=== PATIENT | female | born 1965 | race Caucasian/White ===

== ENCOUNTER → 2023-07-27 | Outpatient (CLI) | payer OTHER ==
--- NOTE | 2023-07-27 09:35 | XR ---
EXAMINATION TYPE: XR cervical spine comp DATE OF EXAM: 07/27/2023 COMPARISON: NONE HISTORY: Neck pain TECHNIQUE: Four views are submitted. FINDINGS: The odontoid is intact. There are no compression deformities. The prevertebral soft tissue structur es are within normal limits. Hypertrophic and degenerative change of the spine C5-C6 and C6-C7. Mild facet arthropathy. There is foraminal encroachment C5-C6 bilaterally. Loss of the normal cervical lo rdosis. Calcifications soft tissue the neck likely vascular IMPRESSION: 1. Degenerative disc disease C5-6 and C6-C7.
--- NOTE | 2023-07-27 10:00 | XR ---
EXAMINATION TYPE: XR shoulder complete BILAT DATE OF EXAM: 07/27/2023 COMPARISON: NONE HISTORY: Pain TECHNIQUE: Three views are submitted. FINDINGS: The osseous structures are intact. There is no acute fracture or dislocation. Bilateral moderate hyp ertrophic arthropathy of the AC joint. Glenohumeral joint arthropathy in the right mild arthropathy o n the left. Tiny granuloma right lobe. Sclerotic density overlying the left and appears to be outside osseous iona truction. Vague 9 mm nodule lobe possibly is bony structures.. IMPRESSION: 1. Moderate hypertrophic arthropathy bilateral AC joint correlate for rotator cuff disease. 2. Severe glenohumeral joint arthropathy on the right. 3. Mild left glenohumeral joint arthropathy. 4. Vague nodule left upper lobe possibly related to superimposed structures recommend CT chest..
== END | disposition home or self-care (01) ==
LOC: RADXRMAIN 08:52
PROVIDERS: ATTEND Family Medicine
DX: M50.322 Other cervical disc degeneration at C5-C6 level (principal); M19.012 Primary osteoarthritis, left shoulder; M19.011 Primary osteoarthritis, right shoulder; R91.1 Solitary pulmonary nodule
CPT/HCPCS: 72050

== ENCOUNTER → 2023-08-06 | Outpatient (CLI) | payer OTHER ==
--- NOTE | 2023-08-06 13:40 | MM ---
Reason for Exam: Screening (asymptomatic). Last mammogram was performed 2 year(s) and 1 month(s) ago. Patient History: Menarche at age 13. Patient has no children. Postmenopausal. 08/07/2001, Benign Excisional Biopsy on the right side. Mother had breast cancer, age 62. Risk Values: Prema 5 year model risk: 3.0%. NCI Lifetime model risk: 17.3%. Prior Study Comparison: 06/21/2020 Bilateral Screening Mammogram, Unknown. 06/24/2021 Bilateral Screening Mammogram, Unknown. Tissue Density: There are scattered areas of fibroglandular density. Findings: Analyzed By CAD. Right breast: There is no suspicious group of microcalcifications or new suspicious mass. Left breast: There is no suspicious group of microcalcifications or new suspicious mass. Overall Assessment: Negative, BI-RAD 1 Management: Screening Mammogram of both breasts in [address] [facility] will attempt to contact patient to return for supplemental views and ultrasound if indicated. Patient should continue monthly self-breast exams. A clinical breast exam by your physician is recommended on an annual basis. This exam should not preclude additional follow-up of suspicious palpable abnormalities. Note on Prema scores and lifetime risk: 1. A Prema score greater than 3% is considered moderate risk. If this is the case, consider specialist referral to assess eligibility for a risk reducing agent. 2. If overall lifetime risk for the development of breast cancer is 20% or higher, the patient may qualify for future screening with alternating mammogram and breast MRI. Electronically signed and approved by: Kenny Mina DO
== END | disposition home or self-care (01) ==
LOC: RADMAMWWP 10:46
PROVIDERS: ATTEND Family Medicine
DX: Z12.31 Encounter for screening mammogram for malignant neoplasm of breast (principal); Z80.3 Family history of malignant neoplasm of breast; Z78.0 Asymptomatic menopausal state
CPT/HCPCS: 77063; 77067

== ENCOUNTER → 2023-09-17 | Outpatient (CLI) | payer OTHER ==
--- NOTE | 2023-09-17 11:28 | XR ---
EXAMINATION TYPE: XR chest 2V DATE OF EXAM: 09/17/2023 10:02 AM CLINICAL INDICATION:Female, 58 years old with history of R91.1 SPN; PHH COMPARISON: None TECHNIQUE: XR chest 2V Frontal and lateral views of the chest. FINDINGS: Lungs/Pleura: Right upper lung nodule measuring 4 mm. There is no evidence of pleural effusion, focal consolidation, or pneumothorax. Pulmonary vascularity: Unremarkable. Heart/mediastinum: Cardiomediastinal silhouette is unremarkable. Musculoskeletal: No acute osseous pathology. IMPRESSION: 1. No acute cardiopulmonary disease/process. 2. Right upper lobe nodule possibly calcified granuloma. Correlate with CT imaging.
== END | disposition home or self-care (01) ==
LOC: RADXRMAIN 09:44
PROVIDERS: ATTEND Family Medicine
DX: R91.1 Solitary pulmonary nodule (principal)
CPT/HCPCS: 71046

== ENCOUNTER 2024-05-21 10:53 | Emergency (ER) | payer OTHER ==
--- NOTE | 2024-05-21 11:11 | ED ---
GI Bleed HPI - General Chief complaint: GI Bleed Stated complaint: bloody diarrhea Time Seen by Provider: 05/21/24 11:10 Source: patient, RN notes reviewed, old records reviewed Mode of arrival: ambulatory Limitations: no limitations - History of Present Illness Initial comments: This is a 59-year-old female to the ER today. She presents today for evaluation of abdominal pain, abdominal pain for 3 days with blood in the stool today. Bright red blood mixed with stool. Patient has prior history of colonoscopy 10 years ago with normal, abdominal pain increasing with cramping and not feeling comfortable for 3 days worse today. Pain started on Sunday with change in appetite MD complaint: blood on toilet paper, blood streaked stool -: days(s) (3) Radiation: none Quality: cramping Consistency: intermittent Improves with: none Worsens with: none Associated Symptoms: abdominal pain, nausea Treatments Prior to Arrival: none - Related Data Home Medications Medication Instructions Recorded Confirmed Albuterol Sulfate [Ventolin HFA] 2 puff INHALATION RT-BID PRN 05/21/24 05/21/24 Bifidobacterium Infantis [Align] 4 mg PO DAILY 05/21/24 05/21/24 Chlorthalidone 25 mg PO DAILY 05/21/24 05/21/24 Fish Oil 700mg 700 mg PO DAILY 05/21/24 05/21/24 Fluticasone Nasal [place] [Flonase 2 spr EA NOSTRIL DAILY 05/21/24 05/21/24 Nasal [place]] Gabapentin [Neurontin] 400 mg PO DAILY 05/21/24 05/21/24 Levothyroxine Sodium [Synthroid] 88 mcg PO DAILY 05/21/24 05/21/24 Metoprolol Succinate [Toprol XL] 100 mg PO DAILY 05/21/24 05/21/24 Multivit with Calcium,Iron,Min 1 tab PO DAILY 05/21/24 05/21/24 [Women's Multivitamin] OXcarbazepine [Trileptal] 150 mg PO BID 05/21/24 05/21/24 Omeprazole 40 mg PO DAILY 05/21/24 05/21/24 QUEtiapine [SEROquel] 100 mg PO HS 05/21/24 05/21/24 Tiotropium 2.5 Mcg/Puff [Spiriva 2 puff INHALATION RT-DAILY 05/21/24 05/21/24 Respimat 2.5 Mcg] Venlafaxine HCl [Effexor XR] 150 mg PO DAILY 05/21/24 05/21/24 Previous Rx's Medication Instructions Recorded Levofloxacin [Levaquin] 750 mg PO DAILY 7 Days #1 tab 05/21/24 Ondansetron Odt [Zofran ODT] 4 mg PO Q8HR PRN #30 tab 05/21/24 metroNIDAZOLE [Flagyl] 500 mg PO TID #30 tab 05/21/24 Allergies Allergy/AdvReac Type Severity Reaction Status Date / Time amoxicillin [From Augmentin] Allergy Rash/Hives Verified 05/21/24 12:18 clavulanic acid Allergy Rash/Hives Verified 05/21/24 12:18 [From Augmentin] Review of Systems ROS Statement: Those systems with pertinent positive or pertinent negative responses have been documented in the HPI. ROS Other: All systems not noted in ROS Statement are negative. Past Medical History Past Medical History: Hypertension, Thyroid Disorder Additional Past Medical History / Comment(s): tendinitis, right carpal tunnel, Barretts esophagus, Sjogrens, SVT, emphysema, right plantar fasciitis, hemorrhoids History of Any Multi-Drug Resistant Organisms: None Reported Past Surgical History: Orthopedic Surgery, Tubal Ligation Additional Past Surgical History / Comment(s): cervical leep, D&C, internal lateral sphincter irony, septoplasty and uvula vidal. Past Psychological History: Bipolar, Depression Smoking Status: Never smoker Past Alcohol Use History: Daily Past Drug Use History: None Reported General Exam Limitations: no limitations General appearance: alert, in no apparent distress Head exam: Present: atraumatic, normocephalic, normal inspection Eye exam: Present: normal appearance, PERRL, EOMI. Absent: scleral icterus, conjunctival injection, periorbital swelling ENT exam: Present: normal exam, mucous membranes moist Neck exam: Present: normal inspection. Absent: tenderness, meningismus, lymphadenopathy Respiratory exam: Present: normal lung sounds bilaterally. Absent: respiratory distress, wheezes, rales, rhonchi, stridor Cardiovascular Exam: Present: regular rate, normal rhythm, normal heart sounds. Absent: systolic murmur, diastolic murmur, rubs, gallop, clicks GI/Abdominal exam: Present: soft, normal bowel sounds. Absent: distended, tenderness, guarding, rebound, rigid Extremities exam: Present: normal inspection, full ROM, normal capillary refill. Absent: tenderness, pedal edema, joint swelling, calf tenderness Back exam: Present: normal inspection Neurological exam: Present: alert, oriented X3, CN II-XII intact Psychiatric exam: Present: normal affect, normal mood Skin exam: Present: warm, dry, intact, normal color. Absent: rash Course Vital Signs 05/21/24 05/21/24 05/21/24 10:54 11:55 14:04 Temperature 97.6 F 98.2 F Pulse Rate 69 69 67 Respiratory 18 16 18 Rate Blood Pressure 167/112 120/72 O2 Sat by Pulse 97 97 95 Oximetry - Reevaluation(s) Reevaluation #1: 05/21/24 12:42 Medical records reviewed Prior colonoscopy is reviewed No prior history of GI bleed Reevaluation #2: 05/21/24 12:42 Patient has not had bloody bowel movement here in the ER Reevaluation #3: Patient informed of results questions answered Reevaluation #4: Was pt. sent in by a medical professional or institution (, PA, BEAR KEEPER, urgent care, hospital, or usp...) When possible be specific @ -no Did you speak to anyone other than the patient for history (EMS, parent, family, police, friend...)? What history was obtained from this source @ -no Did you review nursing and triage notes (agree or disagree)? Why? @ -agree Are old charts reviewed (outside hosp., previous admission, EMS record, old EKG, old radiological studies, urgent care reports/EKG's, usp records)? Report findings @ -yes Differential Diagnosis (chest pain, altered mental status, abdominal pain women, abdominal pain men, vaginal bleeding, weakness, fever, dyspnea, syncope, headache, dizziness, GI bleed, back pain, seizure, CVA, palpatations, mental health, musculoskeletal)? @ -prior EKG interpreted by me (3pts min.). @ -yes X-rays interpreted by me (1pt min.). @ -no CT interpreted by me (1pt min.). @ -Positive for acute diverticulitis U/S interpreted by me (1pt. min.). @ -no What testing was considered but not performed or refused? (CT, X-rays, U/S, labs)? Why? @ -none What meds were considered but not given or refused? Why? @ -none Did you discuss the management of the patient with other professionals (professionals i.e. , PA, BEAR KEEPER, lab, RT, psych nurse, social media coordinator, service agent, teacher, air antisubmarine officer, case management director)? Give summary @ -no Was smoking cessation discussed for >3mins.? @ -no Was critical care preformed (if so, how long)? @ -no Were there social determinants of health that impacted care today? How? (Homelessness, low income, unemployed, alcoholism, drug addiction, transportation, low edu. Level, literacy, decrease access to med. care, fpc, rehab)? @ -none Was there de-escalation of care discussed even if they declined (Discuss DNR or withdrawal of care, Hospice)? DNR status @ -no What co-morbidities impacted this encounter? (DM, HTN, Smoking, COPD, CAD, Cancer, CVA, ARF, Chemo, Hep., AIDS, mental health diagnosis, sleep apnea, morbi d obesity)? @ -none Was patient admitted / discharged? Hospital course, mention meds given and rout e, prescriptions, significant lab abnormalities, going to OR and other pertinent info. @ - 59 female to ER for evaluation of abdominal pain with blood per rectum. Patient is positive for diverticulitis here in the ER, she feels much improved throughout ER stay and prefers discharge home to trial outpatient treatment Discharge acute diverticulitis and GI bleed Undiagnosed new problem with uncertain prognosis? @ -no Drug Therapy requiring intensive monitoring for toxicity (Heparin, Nitro, Insul in, Cardizem)? @ -no Were any procedures done? @ -no Diagnosis/symptom? @ - Acute, or Chronic, or Acute on Chronic? @ -Acute Uncomplicated (without systemic symptoms) or Complicated (systemic symptoms)? @ -Complicated Side effects of treatment? @ -no Exacerbation, Progression, or Severe Exacerbation? @ -exacerbation Poses a threat to life or bodily function? How? (Chest pain, [place], [place], pneumonia, PE, COPD, DKA, ARF, appy, cholecystitis, CVA, Diverticulitis, Homicidal, Suicidal, threat to staff... and all critical care pts) @ -yes with GI bleed Reevaluation #5: Differential GI Bleed: Esophageal varices, aortoenteric fistula, Rosangela-Meneses, gastritis, peptic ulcer disease, diverticulosis, inflammatory bowel disease, hemorrhoids, fissure, colitis, malignancy, Meckel's diverticulum, this is not meant to be an all- inclusive list. Medical Decision Making - Medical Decision Making 59 female to ER for evaluation of abdominal pain with blood per rectum. Patient is positive for diverticulitis here in the ER, she feels much improved throughout ER stay and prefers discharge home to trial outpatient treatment - Lab Data Result diagrams: 05/21/24 11:52 05/21/24 11:52 Lab Results 05/21/24 05/21/24 05/21/24 Range/Units 11:52 11:52 11:52 WBC 10.0 (3.8-10.6) k/uL RBC 4.93 (3.80-5.40) m/uL Hgb 14.7 (11.4-16.0) gm/dL Hct 44.9 (34.0-46.0) % MCV 91.0 (80.0-100.0) fL MCH 29.8 (25.0-35.0) pg MCHC 32.8 (31.0-37.0) g/dL RDW 12.9 (11.5-15.5) % Plt Count 230 (150-450) k/uL MPV 9.5 Neutrophils % 71 % Lymphocytes % 23 % Monocytes % 4 % Eosinophils % 1 % Basophils % 1 % Neutrophils # 7.1 (1.3-7.7) k/uL Lymphocytes # 2.3 (1.0-4.8) k/uL Monocytes # 0.4 (0-1.0) k/uL Eosinophils # 0.1 (0-0.7) k/uL Basophils # 0.1 (0-0.2) k/uL PT (10.0-12.5) sec INR (<1.2) APTT 21.8 L (22.0-30.0) sec Sodium 137 (137-145) mmol/L Potassium 3.3 L (3.5-5.1) mmol/L Chloride 94 L (98-107) mmol/L Carbon Dioxide 30 (22-30) mmol/L Anion Gap 13 mmol/L BUN 21 H (7-17) mg/dL Creatinine 0.90 (0.52-1.04) mg/dL Est GFR (CKD-EPI)AfAm 82 (>60 ml/min/1.73 sqM) Est GFR (CKD-EPI)NonAf 71 (>60 ml/min/1.73 sqM) Glucose 121 H (74-99) mg/dL Calcium 10.4 H (8.4-10.2) mg/dL Magnesium 1.9 (1.6-2.3) mg/dL Total Bilirubin 0.7 (0.2-1.3) mg/dL AST 27 (14-36) U/L ALT 24 (4-34) U/L Alkaline Phosphatase 108 (38-126) U/L Ammonia (<30) umol/L Troponin I (0.000-0.034) ng/mL Total Protein 8.7 H (6.3-8.2) g/dL Albumin 5.3 H (3.5-5.0) g/dL Lipase 112 (23-300) U/L Blood Type Blood Type Confirm Blood Type Recheck Bld Type Recheck Status Antibody Screen Spec Expiration Date 05/21/24 05/21/24 05/21/24 Range/Units 11:52 11:52 11:52 WBC (3.8-10.6) k/uL RBC (3.80-5.40) m/uL Hgb (11.4-16.0) gm/dL Hct (34.0-46.0) % MCV (80.0-100.0) fL MCH (25.0-35.0) pg MCHC (31.0-37.0) g/dL RDW (11.5-15.5) % Plt Count (150-450) k/uL MPV Neutrophils % % Lymphocytes % % Monocytes % % Eosinophils % % Basophils % % Neutrophils # (1.3-7.7) k/uL Lymphocytes # (1.0-4.8) k/uL Monocytes # (0-1.0) k/uL Eosinophils # (0-0.7) k/uL Basophils # (0-0.2) k/uL PT 10.6 (10.0-12.5) sec INR 0.9 (<1.2) APTT (22.0-30.0) sec Sodium (137-145) mmol/L Potassium (3.5-5.1) mmol/L Chloride (98-107) mmol/L Carbon Dioxide (22-30) mmol/L Anion Gap mmol/L BUN (7-17) mg/dL Creatinine (0.52-1.04) mg/dL Est GFR (CKD-EPI)AfAm (>60 ml/min/1.73 sqM) Est GFR (CKD-EPI)NonAf (>60 ml/min/1.73 sqM) Glucose (74-99) mg/dL Calcium (8.4-10.2) mg/dL Magnesium (1.6-2.3) mg/dL Total Bilirubin (0.2-1.3) mg/dL AST (14-36) U/L ALT (4-34) U/L Alkaline Phosphatase (38-126) U/L Ammonia <9 (<30) umol/L Troponin I <0.012 (0.000-0.034) ng/mL Total Protein (6.3-8.2) g/dL Albumin (3.5-5.0) g/dL Lipase (23-300) U/L Blood Type Blood Type Confirm Blood Type Recheck Bld Type Recheck Status Antibody Screen Spec Expiration Date 05/21/24 05/21/24 Range/Units 12:30 12:35 WBC (3.8-10.6) k/uL RBC (3.80-5.40) m/uL Hgb (11.4-16.0) gm/dL Hct (34.0-46.0) % MCV (80.0-100.0) fL MCH (25.0-35.0) pg MCHC (31.0-37.0) g/dL RDW (11.5-15.5) % Plt Count (150-450) k/uL MPV Neutrophils % % Lymphocytes % % Monocytes % % Eosinophils % % Basophils % % Neutrophils # (1.3-7.7) k/uL Lymphocytes # (1.0-4.8) k/uL Monocytes # (0-1.0) k/uL Eosinophils # (0-0.7) k/uL Basophils # (0-0.2) k/uL PT (10.0-12.5) sec INR (<1.2) APTT (22.0-30.0) sec Sodium (137-145) mmol/L Potassium (3.5-5.1) mmol/L Chloride (98-107) mmol/L Carbon Dioxide (22-30) mmol/L Anion Gap mmol/L BUN (7-17) mg/dL Creatinine (0.52-1.04) mg/dL Est GFR (CKD-EPI)AfAm (>60 ml/min/1.73 sqM) Est GFR (CKD-EPI)NonAf (>60 ml/min/1.73 sqM) Glucose (74-99) mg/dL Calcium (8.4-10.2) mg/dL Magnesium (1.6-2.3) mg/dL Total Bilirubin (0.2-1.3) mg/dL AST (14-36) U/L ALT (4-34) U/L Alkaline Phosphatase (38-126) U/L Ammonia (<30) umol/L Troponin I (0.000-0.034) ng/mL Total Protein (6.3-8.2) g/dL Albumin (3.5-5.0) g/dL Lipase (23-300) U/L Blood Type A Negative Blood Type Confirm A Negative Blood Type Recheck No Previous Record Bld Type Recheck Status CABO Indicated Antibody Screen NEGATIVE Spec Expiration Date 05/24/20242329 - Radiology Data Radiology results: report reviewed (CT of the abdomen pelvis is positive for acute diverticulitis), image reviewed Disposition Clinical Impression: Lower gastrointestinal hemorrhage, Diverticulitis Disposition: HOME SELF-CARE Condition: Good Instructions (If sedation given, give patient instructions): Gastrointestinal Bleeding (ED), Diverticulitis (ED), Rectal Bleeding (ED) Prescriptions: metroNIDAZOLE [Flagyl] 500 mg PO TID #30 tab Levofloxacin [Levaquin] 750 mg PO DAILY 7 Days #1 tab Ondansetron Odt [Zofran ODT] 4 mg PO Q8HR PRN #30 tab PRN Reason: nausea/vomiting Is patient prescribed a controlled substance at d/c from ED?: No Referrals: Sergio Pena MD [Primary Care Provider] - 1-2 days Maribel Shaver MD [STAFF PHYSICIAN] - 1-2 days Time of Disposition: 13:30
[2024-05-21 12:08] LABS: Basophils # (A) 0.1 k/uL (0-0.2); Basophils % (A) 1 %; Eosinophils # (A) 0.1 k/uL (0-0.7); Eosinophils % (A) 1 %; HCT 44.9 % (34.0-46.0); HGB 14.7 gm/dL (11.4-16.0); Lymphocytes # (A) 2.3 k/uL (1.0-4.8); Lymphocytes % (A) 23 %; MCH 29.8 pg (25.0-35.0); MCHC 32.8 g/dL (31.0-37.0); Mean Platelet Volume 9.5; Monocytes # (A) 0.4 k/uL (0-1.0); Monocytes % (A) 4 %; Neutrophils # (A) 7.1 k/uL (1.3-7.7); Neutrophils % (A) 71 %; Platelet Count 230 k/uL (150-450); RBC 4.93 m/uL (3.80-5.40); RDW 12.9 % (11.5-15.5)
[2024-05-21 12:18] LABS: ALT 24 U/L (4-34); AST 27 U/L (14-36); African American GFR (CKD) 82 (>60 ml/min/1.73 sqM); Albumin 5.3 g/dL (3.5-5.0); Alkaline Phosphatase 108 U/L (38-126); Anion Gap 13 mmol/L; Blood Urea Nitrogen 21 mg/dL (7-17); Calcium 10.4 mg/dL (8.4-10.2); Carbon Dioxide 30 mmol/L (22-30); Chloride 94 mmol/L (98-107); Glucose 121 mg/dL (74-99); Lipase 112 U/L (23-300); Magnesium 1.9 mg/dL (1.6-2.3); Non-African American GFR(CKD) 71 (>60 ml/min/1.73 sqM); Potassium 3.3 mmol/L (3.5-5.1); Sodium 137 mmol/L (137-145); Total Bilirubin 0.7 mg/dL (0.2-1.3); Total Protein 8.7 g/dL (6.3-8.2)
[2024-05-21] MEDS: PANTOPRAZOLE 40 MG/10 ML VIAL IVP STA (12:31)
[2024-05-21] MEDS: SODIUM CHLORIDE 0.9% 1,000 ML IV STA (12:32)
[2024-05-21] MEDS: ONDANSETRON 4 MG/2 ML VIAL IVP STA (12:34)
--- NOTE | 2024-05-21 13:10 | CT ---
EXAMINATION TYPE: CT abdomen pelvis w con DATE OF EXAM: 05/21/2024 COMPARISON: None CLINICAL INDICATION: Female, 59 years old with history of GIB; PHH, GIB TECHNIQUE: Performed without Oral Contrast and with IV Contrast, patient injected with 100 ml mL of Isovue 300. CT DLP: 1024.[address] CTDI: mGy Automated exposure control for dose reduction was used. FINDINGS: The lung bases are clear. There is a single tiny gallstone but no gallbladder wall thickening, distention or pericholecystic fl uid. There is no biliary ductal dilatation. There is no focal mass or organomegaly involving the liver, pancreas, spleen or adrenal glands. There is no solid renal mass or hydronephrosis and there is homogeneous contrast enhancement of the r enal parenchyma. The caliber the abdominal aorta is normal is no retroperitoneal adenopathy or hemorr kaden. There is mild inflammatory change in the fat surrounding the descending consistent with mild acute di verticulitis. There is a single diverticulum with increased density which could indicate acute blood in the diverticulum. There is no bowel obstruction. There is no intra-abdominal abscess, free fluid o r free air. There is no pelvic mass, abscess, free fluid or adenopathy. There are no focal osseous lesions. IMPRESSION: 1. Mild diverticulitis of the descending colon. 2. Possible small amount of acute hemorrhage within a single diverticulum in the descending colon. 3. No free intraperitoneal air, free fluid, abscess or bowel obstruction. 4. Tiny single gallstone. [facility], , 05/21/2024 1:08 PM
[2024-05-21] MEDS: LEVOFLOXACIN 750 MG TAB PO STA (13:55)
[2024-05-21] MEDS: ONDANSETRON 4 MG ODT STARTER PACK 2 TAB BTL PO STA (13:55)
[2024-05-21] MEDS: traMADol 50 MG STARTER PACK 3 TAB BTL PO STA (13:55)
[2024-05-21] MEDS: metroNIDAZOLE 500 MG TAB PO STA (13:55)
[2024-05-21 14:05] VITALS: BP 120/72; PULSE 67; RESP 18; TEMP 98.2
[2024-05-21 17:21] LABS: INR 0.9 (<1.2); Prothrombin Time 10.6 sec (10.0-12.5)
== END 2024-05-21 14:05 | disposition home or self-care (01) ==
LOC: EC 10:53
DX: K57.33 Diverticulitis of large intestine without perforation or abscess with bleeding (principal)
CPT/HCPCS: 36415; 86900; 86901; 80053; 82140; 83690; 83735; 84484; 85025; 85610; 85730; 86850; 74177; 99285; 96374; 96375; 96361; J2405; S0119; Q9967; J2470

== ENCOUNTER 2024-06-19 11:37 | Observation (INO) | payer OTHER ==
--- NOTE | 2024-06-19 12:40 | XR ---
EXAMINATION TYPE: XR chest 2V DATE OF EXAM: 06/19/2024 12:36 PM COMPARISON: Chest radiographs from TECHNIQUE: XR chest 2V Frontal and lateral views of the chest. CLINICAL INDICATION:Female, 59 years old with history of Chest Pain; FINDINGS: Lungs/Pleura: There is no evidence of pleural effusion, focal consolidation, or pneumothorax. Stable right upper lung granuloma. Pulmonary vascularity: Unremarkable. Heart/mediastinum: Cardiomediastinal silhouette is unremarkable. Musculoskeletal: No acute osseous pathology. IMPRESSION: No acute cardiopulmonary disease/process. [facility], , 06/19/2024 12:38 PM
[2024-06-19 12:43] LABS: Basophils % (A) 1 %; Eosinophils # (A) 0.1 k/uL (0-0.7); Eosinophils % (A) 2 %; HCT 39.3 % (34.0-46.0); Lymphocytes # (A) 2.1 k/uL (1.0-4.8); Lymphocytes % (A) 37 %; MCH 29.8 pg (25.0-35.0); MCHC 33.2 g/dL (31.0-37.0); MCV 89.8 fL (80.0-100.0); Mean Platelet Volume 8.8; Monocytes # (A) 0.3 k/uL (0-1.0); Monocytes % (A) 5 %; Neutrophils % (A) 53 %; Platelet Count 203 k/uL (150-450); RBC 4.38 m/uL (3.80-5.40); RDW 12.8 % (11.5-15.5); WBC 5.6 k/uL (3.8-10.6)
[2024-06-19 12:44] LABS: Appearance,Urine Clear (Clear); Bilirubin,Urine Negative (Negative); Blood,Urine Negative (Negative); Color,Urine Colorless; Glucose,Urine (UA) Negative (Negative); Ketones,Urine Negative (Negative); Leukocyte Esterase,Urine Negative (Negative); Nitrite,Urine Negative (Negative); Protein,Urine Negative (Negative); Specific Gravity,Urine 1.007 (1.001-1.035); Urobilinogen,Urine <2.0 mg/dL (<2.0)
[2024-06-19 12:51] LABS: INR 0.9 (<1.2); Partial Thromboplastin Time 22.2 sec (22.0-30.0); Prothrombin Time 10.4 sec (10.0-12.5)
[2024-06-19 13:15] LABS: African American GFR (CKD) 80 (>60 ml/min/1.73 sqM); Anion Gap 10 mmol/L; Blood Urea Nitrogen 19 mg/dL (7-17); Calcium 10.1 mg/dL (8.4-10.2); Carbon Dioxide 30 mmol/L (22-30); Chloride 97 mmol/L (98-107); Glucose 107 mg/dL (74-99); Non-African American GFR(CKD) 70 (>60 ml/min/1.73 sqM); Potassium 3.6 mmol/L (3.5-5.1); Sodium 137 mmol/L (137-145)
[2024-06-19 13:16] LABS: ALT 24 U/L (4-34); AST 28 U/L (14-36); Albumin 4.9 g/dL (3.5-5.0); Alkaline Phosphatase 109 U/L (38-126); Total Bilirubin 0.6 mg/dL (0.2-1.3); Total Protein 7.9 g/dL (6.3-8.2)
[2024-06-19] MEDS: MECLIZINE 12.5 MG TAB PO STA (13:53)
[2024-06-19] MEDS: SODIUM CHLORIDE 0.9% 1,000 ML IV ONE (13:54)
--- NOTE | 2024-06-19 14:18 | CT ---
EXAMINATION TYPE: CT brain wo con DATE OF EXAM: 06/19/2024 COMPARISON: None CLINICAL INDICATION: Female, 59 years old with history of ataxia; PHH, palpittions, dizziness, tingli ng in hands and feet, weakness, nausea x [address] DLP: 1133.4 mGycm Automated exposure control for dose reduction was used. Findings: The ventricles, basal cisterns and sulci over the convexities are within normal limits and there is n o mass effect or shift of midline structures. No abnormal density is seen throughout the brain parenchyma and there is no acute intra or extra-axia l hemorrhage. The posterior fossa including the brainstem, fourth ventricle and cerebellar pontine angles appear no rmal. Intraorbital contents appear normal and symmetric. Visualized paranasal sinuses and mastoid air cells are well aerated. The calvarium is intact. IMPRESSION: No significant abnormality seen. There is no acute bleed or mass effect. [facility], Workstation: [id number] 06/19/2024 2:15 PM
--- NOTE | 2024-06-19 15:28 | ED ---
General Adult HPI - General Chief complaint: Recheck/Abnormal Lab/Rx Stated complaint: Abn EKG Time Seen by Provider: 06/19/24 11:51 Source: patient Mode of arrival: ambulatory Limitations: no limitations - History of Present Illness Initial comments: 59-year-old female who presents emergency department from her primary care office. States that she has been fatigued since Sunday. She has had difficulty staying awake. Reports that she feels off balance and that she has to ambulate using rodriguez to keep herself upright. She denies vertiginous symptoms. Admits to nausea without vomiting. No headaches or visual changes. Denies chest pain. No fevers, cough. Does admit to some shortness of breath especially with exertion. No calf pain or swelling. No history of coronary disease. Does admit a history of SVT. She went into see her primary care today who did an EKG. Reported that she had diffuse T wave inversions. He had no old to compare to and therefore he recommended the patient be observed for further cardiac workup. - Related Data Home Medications Medication Instructions Recorded Confirmed Albuterol Sulfate [Ventolin HFA] 2 puff INHALATION RT-QID PRN 05/21/24 06/19/24 Bifidobacterium Infantis [Align] 4 mg PO DAILY 05/21/24 06/19/24 Chlorthalidone 25 mg PO DAILY 05/21/24 06/19/24 Fish Oil 700mg 700 mg PO DAILY 05/21/24 06/19/24 Fluticasone Nasal [place] [Flonase 2 spr EA NOSTRIL DAILY 05/21/24 06/19/24 Nasal [place]] Gabapentin [Neurontin] 400 mg PO HS 05/21/24 06/19/24 Levothyroxine Sodium [Synthroid] 88 mcg PO DAILY 05/21/24 06/19/24 Metoprolol Succinate [Toprol XL] 100 mg PO DAILY 05/21/24 06/19/24 Multivit with Calcium,Iron,Min 1 tab PO DAILY 05/21/24 06/19/24 [Women's Multivitamin] OXcarbazepine [Trileptal] 150 mg PO BID 05/21/24 06/19/24 Omeprazole 40 mg PO DAILY 05/21/24 06/19/24 QUEtiapine [SEROquel] 100 mg PO HS 05/21/24 06/19/24 Tiotropium 2.5 Mcg/Puff [Spiriva 2 puff INHALATION RT-DAILY 05/21/24 06/19/24 Respimat 2.5 Mcg] Venlafaxine HCl [Effexor XR] 150 mg PO DAILY 05/21/24 06/19/24 Allergies Allergy/AdvReac Type Severity Reaction Status Date / Time amoxicillin [From Augmentin] Allergy Rash/Hives Verified 06/19/24 11:48 clavulanic acid Allergy Rash/Hives Verified 06/19/24 11:48 [From Augmentin] Review of Systems ROS Statement: Those systems with pertinent positive or pertinent negative responses have been documented in the HPI. ROS Other: All systems not noted in ROS Statement are negative. Past Medical History Past Medical History: Hypertension, Thyroid Disorder Additional Past Medical History / Comment(s): tendinitis, right carpal tunnel, Barretts esophagus, Sjogrens, SVT, emphysema, right plantar fasciitis, hemorr hoids, diverticulitis, kidney stones History of Any Multi-Drug Resistant Organisms: None Reported Past Surgical History: Orthopedic Surgery, Tubal Ligation Additional Past Surgical History / Comment(s): cervical leep, D&C, internal lateral sphincter irony, septoplasty and uvula vidal. Past Psychological History: Bipolar, Depression Smoking Status: Never smoker Past Alcohol Use History: Daily Past Drug Use History: None Reported General Exam Limitations: no limitations General appearance: alert, in no apparent distress Head exam: Present: atraumatic, normocephalic, normal inspection Eye exam: Present: normal appearance, PERRL, EOMI. Absent: scleral icterus, conjunctival injection, periorbital swelling ENT exam: Present: normal exam, mucous membranes moist Neck exam: Present: normal inspection. Absent: tenderness, meningismus, lymphadenopathy Respiratory exam: Present: normal lung sounds bilaterally. Absent: respiratory distress, wheezes, rales, rhonchi, stridor Cardiovascular Exam: Present: regular rate, normal rhythm, normal heart sounds. Absent: systolic murmur, diastolic murmur, rubs, gallop, clicks GI/Abdominal exam: Present: soft, normal bowel sounds. Absent: distended, tenderness, guarding, rebound, rigid Extremities exam: Present: normal inspection, full ROM, normal capillary refill. Absent: tenderness, pedal edema, joint swelling, calf tenderness Back exam: Present: normal inspection Neurological exam: Present: alert, oriented X3, CN II-XII intact Psychiatric exam: Present: normal affect, normal mood Skin exam: Present: warm, dry, intact, normal color. Absent: rash Course Vital Signs 06/19/24 06/19/24 06/19/24 11:41 12:57 13:43 Temperature 98.0 F Pulse Rate 63 59 L Pulse Rate [ 57 L Executive Admin ] Respiratory 17 18 18 Rate Blood Pressure 149/93 103/70 Blood Pressure [Left Arm Sitting] Blood Pressure [Left Arm Standing] Blood Pressure 119/75 [Left Arm Supine] O2 Sat by Pulse 95 95 95 Oximetry 06/19/24 06/19/24 06/19/24 13:45 13:46 14:30 Temperature Pulse Rate 64 Pulse Rate [ 57 L 84 Executive Admin ] Respiratory 16 18 16 Rate Blood Pressure 129/79 Blood Pressure 125/85 [Left Arm Sitting] Blood Pressure 136/105 [Left Arm Standing] Blood Pressure [Left Arm Supine] O2 Sat by Pulse 98 98 100 Oximetry Medical Decision Making - Medical Decision Making Was pt. sent in by a medical professional or institution (, PA, GROUP INSURANCE SPECIALIST, urgent care, hospital, or alf...) When possible be specific @ -[No] Did you speak to anyone other than the patient for history (EMS, parent, family, police, friend...)? What history was obtained from this source @ -[No] Did you review nursing and triage notes (agree or disagree)? Why? @ -[I reviewed and agree with nursing and triage notes] Were old charts reviewed (outside hosp., previous admission, EMS record, old EKG, old radiological studies, urgent care reports/EKG's, alf records)? Report findings @ -[No old charts were reviewed] Differential Diagnosis (chest pain, altered mental status, abdominal pain women, abdominal pain men, vaginal bleeding, weakness, fever, dyspnea, syncope, headache, dizziness, GI bleed, back pain, seizure, CVA, palpatations, mental health, musculoskeletal)? @ -[not applicable] EKG interpreted by me (3pts min.). @ -First EKG done at 1158 demonstrates sinus rhythm with rate of 60. CA interval 177. QRS 110. QTc of 414. No acute ST segment elevations. Inverted T wave V2 through V6 Second EKG completed at 1439 demonstrates sinus rhythm with rate of 67. Parable 148. QRS 121. QTc of 438. No acute ST segment elevations. Inverted T waves 2, 3, aVF as well as V2 through V6 X-rays interpreted by me (1pt min.). @ -[None done] CT interpreted by me (1pt min.). @ -[None done] U/S interpreted by me (1pt. min.). @ -[None done] What testing was considered but not performed or refused? (CT, X-rays, U/S, labs)? Why? @ -[None] What meds were considered but not given or refused? Why? @ -[None] Did you discuss the management of the patient with other professionals (professionals i.e. , PA, GROUP INSURANCE SPECIALIST, lab, RT, psych nurse, social group worker, tombstone erector, teacher, armed custom protection officer, caseworker intake)? Give summary @ -[No] Was smoking cessation discussed for >3mins.? @ -[No] Was critical care preformed (if so, how long)? @ -[No] Were there social determinants of health that impacted care today? How? (Homelessness, low income, unemployed, alcoholism, drug addiction, transportation, low edu. Level, literacy, decrease access to med. care, care home, rehab)? @ -[No] Was there de-escalation of care discussed even if they declined (Discuss DNR or withdrawal of care, Hospice)? DNR status @ -[No] What co-morbidities impacted this encounter? (DM, HTN, Smoking, COPD, CAD, Cancer, CVA, ARF, Chemo, Hep., AIDS, mental health diagnosis, sleep apnea, morbid obesity)? @ -[None] Was patient admitted / discharged? Hospital course, mention meds given and route, prescriptions, significant lab abnormalities, going to OR and other pertinent info. @ -[hospital course] Undiagnosed new problem with uncertain prognosis? @ -[No] Drug Therapy requiring intensive monitoring for toxicity (Heparin, Nitro, Insulin, Cardizem)? @ -[No] Were any procedures done? @ -[No] Diagnosis/symptom? @ -[default] Acute, or Chronic, or Acute on Chronic? @ -[default] Uncomplicated (without systemic symptoms) or Complicated (systemic symptoms)? @ -[default] Side effects of treatment? @ -[No] Exacerbation, Progression, or Severe Exacerbation? @ -[No] Poses a threat to life or bodily function? How? (Chest pain, USA, ID, pneumonia, PE, COPD, DKA, ARF, appy, cholecystitis, CVA, Diverticulitis, Homicidal, Suicidal, threat to staff... and all critical care pts) @ -[No] - Lab Data Result diagrams: 06/19/24 12:23 06/19/24 12:23 Lab Results 06/19/24 06/19/24 06/19/24 Range/Units 12:23 12:23 12:23 WBC 5.6 (3.8-10.6) k/uL RBC 4.38 (3.80-5.40) m/uL Hgb 13.0 (11.4-16.0) gm/dL Hct 39.3 (34.0-46.0) % MCV 89.8 (80.0-100.0) fL MCH 29.8 (25.0-35.0) pg MCHC 33.2 (31.0-37.0) g/dL RDW 12.8 (11.5-15.5) % Plt Count 203 (150-450) k/uL MPV 8.8 Neutrophils % 53 % Lymphocytes % 37 % Monocytes % 5 % Eosinophils % 2 % Basophils % 1 % Neutrophils # 3.0 (1.3-7.7) k/uL Lymphocytes # 2.1 (1.0-4.8) k/uL Monocytes # 0.3 (0-1.0) k/uL Eosinophils # 0.1 (0-0.7) k/uL Basophils # 0.0 (0-0.2) k/uL PT 10.4 (10.0-12.5) sec INR 0.9 (<1.2) APTT 22.2 (22.0-30.0) sec D-Dimer (<0.60) mg/L FEU Sodium 137 (137-145) mmol/L Potassium 3.6 (3.5-5.1) mmol/L Chloride 97 L (98-107) mmol/L Carbon Dioxide 30 (22-30) mmol/L Anion Gap 10 mmol/L BUN 19 H (7-17) mg/dL Creatinine 0.91 (0.52-1.04) mg/dL Est GFR (CKD-EPI)AfAm 80 (>60 ml/min/1.73 sqM) Est GFR (CKD-EPI)NonAf 70 (>60 ml/min/1.73 sqM) Glucose 107 H (74-99) mg/dL Calcium 10.1 (8.4-10.2) mg/dL Magnesium 2.0 (1.6-2.3) mg/dL Total Bilirubin 0.6 (0.2-1.3) mg/dL AST 28 (14-36) U/L ALT 24 (4-34) U/L Alkaline Phosphatase 109 (38-126) U/L Troponin I (0.000-0.034) ng/mL Total Protein 7.9 (6.3-8.2) g/dL Albumin 4.9 (3.5-5.0) g/dL Urine Color Urine Appearance (Clear) Urine pH (5.0-8.0) Ur Specific [place] (1.001-1.035) Urine Protein (Negative) Urine Glucose (UA) (Negative) Urine Ketones (Negative) Urine Blood (Negative) Urine Nitrite (Negative) Urine Bilirubin (Negative) Urine Urobilinogen (<2.0) mg/dL Ur Leukocyte Esterase (Negative) 06/19/24 06/19/24 06/19/24 Range/Units 12:23 12:23 12:24 WBC (3.8-10.6) k/uL RBC (3.80-5.40) m/uL Hgb (11.4-16.0) gm/dL Hct (34.0-46.0) % MCV (80.0-100.0) fL MCH (25.0-35.0) pg MCHC (31.0-37.0) g/dL RDW (11.5-15.5) % Plt Count (150-450) k/uL MPV Neutrophils % % Lymphocytes % % Monocytes % % Eosinophils % % Basophils % % Neutrophils # (1.3-7.7) k/uL Lymphocytes # (1.0-4.8) k/uL Monocytes # (0-1.0) k/uL Eosinophils # (0-0.7) k/uL Basophils # (0-0.2) k/uL PT (10.0-12.5) sec INR (<1.2) APTT (22.0-30.0) sec D-Dimer 0.22 (<0.60) mg/L FEU Sodium (137-145) mmol/L Potassium (3.5-5.1) mmol/L Chloride (98-107) mmol/L Carbon Dioxide (22-30) mmol/L Anion Gap mmol/L BUN (7-17) mg/dL Creatinine (0.52-1.04) mg/dL Est GFR (CKD-EPI)AfAm (>60 ml/min/1.73 sqM) Est GFR (CKD-EPI)NonAf (>60 ml/min/1.73 sqM) Glucose (74-99) mg/dL Calcium (8.4-10.2) mg/dL Magnesium (1.6-2.3) mg/dL Total Bilirubin (0.2-1.3) mg/dL AST (14-36) U/L ALT (4-34) U/L Alkaline Phosphatase (38-126) U/L Troponin I <0.012 (0.000-0.034) ng/mL Total Protein (6.3-8.2) g/dL Albumin (3.5-5.0) g/dL Urine Color Colorless Urine Appearance Clear (Clear) Urine pH 7.0 (5.0-8.0) Ur Specific [place] 1.007 (1.001-1.035) Urine Protein Negative (Negative) Urine Glucose (UA) Negative (Negative) Urine Ketones Negative (Negative) Urine Blood Negative (Negative) Urine Nitrite Negative (Negative) Urine Bilirubin Negative (Negative) Urine Urobilinogen <2.0 (<2.0) mg/dL Ur Leukocyte Esterase Negative (Negative) Disposition Clinical Impression: Ataxia, Abnormal EKG Disposition: ADMITTED IP TO THIS [facility] Condition: Stable Is patient prescribed a controlled substance at d/c from ED?: No Referrals: Sergio Pena MD [Primary Care Provider] - 1-2 days Time of Disposition: 15:30 Decision to Admit Reason: Admit from EC Decision Date: 06/19/24 Decision Time: 15:31
[2024-06-19] MEDS ORDERED: NALOXONE 0.4 MG/ML 1 ML VIAL IV PRN (15:31)
[2024-06-19] MEDS ORDERED: ACETAMINOPHEN TAB 325 MG TAB PO PRN (15:31)
[2024-06-19] MEDS: SODIUM CHLORIDE 0.9% 1,000 ML IV SCH (16:16)
[2024-06-20 04:10] LABS: Influenza A Not Detected (Not Detectd); Influenza B Not Detected (Not Detectd); RSV Not Detected (Not Detectd)
[2024-06-20 08:18] LABS: HCT 39.4 % (37.2-46.3); HGB 13.3 g/dL (12.0-15.0); MCH 30.7 pg (27.0-32.0); MCHC 33.8 g/dL (32.0-37.0); Mean Platelet Volume 11.5 FL (9.5-12.2); NRBC Per 100 WBC 0 X 10*3/uL (0.00-0.01); Platelet Count 218 X 10*3/uL (140-440); RBC 4.33 X 10*6/uL (4.10-5.20); RDW 12.6 % (11.5-14.5)
[2024-06-20 08:19] LABS: Basophils # (A) 0.04 X 10*3/uL (0.00-0.10); Basophils % (A) 0.7 %; Eosinophils # (A) 0.07 X 10*3/uL (0.04-0.35); Eosinophils % (A) 1.3 %; Lymphocytes # (A) 1.67 X 10*3/uL (0.90-5.00); Lymphocytes % (A) 30.9 %; Monocytes # (A) 0.41 X 10*3/uL (0.20-1.00); Monocytes % (A) 7.6 %; Neutrophils # (A) 3.17 X 10*3/uL (1.80-7.70); Neutrophils % (A) 58.8 %
[2024-06-20 08:35] LABS: BUN/Creat Ratio 18.78 Ratio (12.00-20.00); Blood Urea Nitrogen 16.9 mg/dL (9.0-27.0); Calcium 9.5 mg/dL (8.7-10.3); Chloride 103 mmol/L (96-109); Glucose 119 mg/dL (70-110); Potassium 3.6 mmol/L (3.5-5.5); Sodium 143 mmol/L (135-145)
[2024-06-20] MEDS ORDERED: ALPRAZolam 0.25 MG TAB PO PRN (08:56)
[2024-06-20] MEDS ORDERED: NITROGLYCERIN SL TABS 0.4 MG TAB SUBLINGUAL PRN (08:56)
[2024-06-20] MEDS ORDERED: ALPRAZolam 0.5 MG TAB PO PRN (08:56)
[2024-06-20] MEDS: ASPIRIN 81 MG PO SCH (09:08)
[2024-06-20] MEDS: ASPIRIN 325 MG TAB PO STA (09:10)
[2024-06-20] MEDS: ATORVASTATIN 80 MG TAB PO STA (09:10)
[2024-06-20] MEDS: CHLORTHALIDONE 25 MG TAB PO SCH (09:11)
[2024-06-20] MEDS: METOPROLOL SUCCINATE (ER) 100 MG TAB.ER.24H PO SCH (09:11)
[2024-06-20] MEDS: SODIUM CHLORIDE 0.9% 1,000 ML in EMPTY BAG 1 BAG IV SCH (09:17)
[2024-06-20] MEDS: SODIUM CHLORIDE 0.9% 1,000 ML IV ONE (09:54)
[2024-06-20] MEDS: HEPARIN SODIUM,PORCINE 10,000 UNIT in SODIUM CHLORIDE 0.9% 1,000 ML IRRIGATION PRN (09:54)
[2024-06-20] MEDS: HEPARIN SODIUM,PORCINE (1 ML) 2,500 UNIT in SODIUM CHLORIDE 0.9% 250 ML IRRIGATION PRN (09:54)
--- NOTE | 2024-06-20 10:10 | P.CRDCN ---
History of Present Illness History of present illness: HISTORY OF PRESENT ILLNESS: This is a 59-year-old female with a past medical history significant for SVT and hypothyroidism. Patient follows with a security officers and guards out of town. We have been asked to see the patient in consultation for chest pain. Patient examined at the bedside. Patient was at her primary care physician yesterday as she states she has been having symptoms of feeling unwell since Sunday. She reports that she has been feeling lethargic, dizzy, weak, and nauseated. She had an EKG completed at that visit which her primary care thought was concerning and directed that she come to the emergency room for further evaluation. At the time of examination, the patient denies any chest pain or pressure. She denies any shortness of breath. She recently had a stress test performed in [facility] that revealed a small defect in the anterior portion of the heart which was read by the radiologist as either ischemia or soft tissue attenuation. The patient also reports a history of SVT approximately 2 years ago that was diagnosed when she was living in [place]. She denies having any palpitations. DIAGNOSTICS: - EKG reveals sinus mechanism with diffuse T wave inversions. - Chest xray negative for acute process. - Laboratory data: WBC 5.4. Hemoglobin 13.3. Platelet count 218. D-dimer 0.22. Sodium 143. Sodium 3.6. BUN 16.9. Creatinine 0.9. Troponin negative x 3. - Current home cardiac medications include metoprolol succinate 100 mg daily and chlorthalidone 25 mg daily. - No previous echocardiogram, stress test, or cardiac catheterization available in EMR for review REVIEW OF SYSTEMS: At the time of my exam: CONSTITUTIONAL: Denies fever or chills. HEENT: Denies blurred vision, vision changes, or eye pain. Denies hemoptysis CARDIOVASCULAR: Denies chest pain. Denies orthopnea. Denies PND. Denies palpitations RESPIRATORY: Denies shortness of breath. GASTROINTESTINAL: Denies abdominal pain. Denies nausea or vomiting. HEMATOLOGIC: Denies bleeding disorders. GENITOURINARY: Denies any blood in urine. SKIN: Denies pruitis. Denies rash. PHYSICAL EXAM: VITAL SIGNS: Reviewed. GENERAL: Well-developed in no acute distress. HEENT: Head is normocephalic. Pupils are equal, round. Sclerae anicteric. Mucous membranes of the mouth are moist. Neck supple. No JVD or thyromegaly LUNGS: Respirations even and unlabored. Lungs essentially clear to auscultation bilaterally. HEART: Regular rate and rhythm. S1 and S2 heard. ABDOMEN: Soft. Nondistended. Nontender. EXTREMITIES: Normal range of motion. No clubbing or cyanosis. Peripheral puls es intact. No lower extremity edema NEUROLOGIC: Awake and alert. Oriented x 3. ASSESSMENT: Chest pain with recent questionable abnormal nuclear stress test History of SVT Hypothyroidism Obesity: BMI 33.3 PLAN: Obtain 2D echo to assess cardiac structure and function Resume home cardiac medications Add aspirin 81 mg daily Discussed different modality of stress testing versus cardiac catheterization. Patient states that she would like to undergo cardiac catheterization. Patient to undergo cardiac catheterization today with Dr. Shaver Further recommendations pending patient course Nurse practitioner note has been reviewed by physician. Signing provider agrees with the documented findings, assessment, and plan of care documented by CORPORATE SECURITY MANAGER as a scribe. Past Medical History Past Medical History: Hypertension, Supraventricular Tachycardia (SVT), Thyroid Disorder Additional Past Medical History / Comment(s): tendinitis, right carpal tunnel, Barretts esophagus, Sjogrens, SVT, emphysema, right plantar fasciitis, hemorrhoids, diverticulitis, kidney stones History of Any Multi-Drug Resistant Organisms: None Reported Past Surgical History: Orthopedic Surgery, Tubal Ligation Additional Past Surgical History / Comment(s): cervical leep, D&C, internal lateral sphincter irony, septoplasty and uvula vidal. Past Psychological History: Bipolar, Depression Smoking Status: Never smoker Past Alcohol Use History: Daily Past Drug Use History: None Reported - Past Family History Mother Family Medical History: Coronary Artery Disease (CAD), Diabetes Mellitus, Hypertension Additional Family Medical History / Comment(s): pacemaker, breast ca Medications and Allergies Home Medications Medication Instructions Recorded Confirmed Type Albuterol Sulfate [Ventolin HFA] 2 puff INHALATION RT-QID PRN 05/21/24 06/19/24 History Bifidobacterium Infantis [Align] 4 mg PO DAILY 05/21/24 06/19/24 History Chlorthalidone 25 mg PO DAILY 05/21/24 06/19/24 History Fish Oil 700mg 700 mg PO DAILY 05/21/24 06/19/24 History Fluticasone Nasal [place] [Flonase 2 spr EA NOSTRIL DAILY 05/21/24 06/19/24 History Nasal [place]] Gabapentin [Neurontin] 400 mg PO HS 05/21/24 06/19/24 History Levothyroxine Sodium [Synthroid] 88 mcg PO DAILY 05/21/24 06/19/24 History Metoprolol Succinate [Toprol XL] 100 mg PO DAILY 05/21/24 06/19/24 History Multivit with Calcium,Iron,Min 1 tab PO DAILY 05/21/24 06/19/24 History [Women's Multivitamin] OXcarbazepine [Trileptal] 150 mg PO BID 05/21/24 06/19/24 History Omeprazole 40 mg PO DAILY 05/21/24 06/19/24 History QUEtiapine [SEROquel] 100 mg PO HS 05/21/24 06/19/24 History Tiotropium 2.5 Mcg/Puff [Spiriva 2 puff INHALATION RT-DAILY 05/21/24 06/19/24 History Respimat 2.5 Mcg] Venlafaxine HCl [Effexor XR] 150 mg PO DAILY 05/21/24 06/19/24 History Allergies Allergy/AdvReac Type Severity Reaction Status Date / Time amoxicillin [From Augmentin] Allergy Rash/Hives Verified 06/19/24 11:48 clavulanic acid Allergy Rash/Hives Verified 06/19/24 11:48 [From Augmentin] Physical Exam Vitals: Vital Signs Temp Pulse Pulse Resp BP BP BP 06/20/24 01:16 97.4 F L 57 L 18 06/19/24 20:00 66 16 06/19/24 19:14 97.6 F 66 16 06/19/24 17:42 98.3 F 66 16 06/19/24 17:21 97.7 F 66 18 109/69 06/19/24 15:52 71 18 127/91 06/19/24 14:30 64 16 129/79 06/19/24 13:46 84 18 136/105 06/19/24 13:45 57 L 16 125/85 06/19/24 13:43 57 L 18 06/19/24 12:57 59 L 18 103/70 06/19/24 11:41 98.0 F 63 17 149/93 BP Pulse Ox 06/20/24 01:16 121/81 95 06/19/24 20:00 06/19/24 19:14 119/77 95 06/19/24 17:42 127/83 95 06/19/24 17:21 95 06/19/24 15:52 100 06/19/24 14:30 100 06/19/24 13:46 98 06/19/24 13:45 98 06/19/24 13:43 119/75 95 06/19/24 12:57 95 06/19/24 11:41 95 Intake and Output 06/19/24 06/20/24 06/20/24 22:59 06:59 14:59 Other: # Voids 1 1 Weight 79.832 kg Results 06/20/24 05:38 06/20/24 05:38 Cardiac Enzymes 06/19/24 06/19/24 06/19/24 Range/Units 12:23 12:23 17:02 AST 28 (14-36) U/L Troponin I <0.012 <0.012 (0.000-0.034) ng/mL 06/19/24 Range/Units 20:07 AST (14-36) U/L Troponin I <0.012 (0.000-0.034) ng/mL Coagulation 06/19/24 Range/Units 12:23 PT 10.4 (10.0-12.5) sec APTT 22.2 (22.0-30.0) sec CBC 06/19/24 Range/Units 12:23 WBC 5.6 (3.8-10.6) k/uL RBC 4.38 (3.80-5.40) m/uL Hgb 13.0 (11.4-16.0) gm/dL Hct 39.3 (34.0-46.0) % Plt Count 203 (150-450) k/uL Comprehensive Metabolic Panel 06/19/24 Range/Units 12:23 Sodium 137 (137-145) mmol/L Potassium 3.6 (3.5-5.1) mmol/L Chloride 97 L (98-107) mmol/L Carbon Dioxide 30 (22-30) mmol/L BUN 19 H (7-17) mg/dL Creatinine 0.91 (0.52-1.04) mg/dL Glucose 107 H (74-99) mg/dL Calcium 10.1 (8.4-10.2) mg/dL AST 28 (14-36) U/L ALT 24 (4-34) U/L Alkaline Phosphatase 109 (38-126) U/L Total Protein 7.9 (6.3-8.2) g/dL Albumin 4.9 (3.5-5.0) g/dL Current Medications Generic Name Dose Route Start Last Admin Trade Name Freq PRN Reason Stop Dose Admin Acetaminophen 650 mg 06/19/24 15:31 Acetaminophen Tab 325 Mg Tab PO Q6HR PRN Mild Pain or Fever > 100.5 Sodium Chloride 1,000 mls @ 75 mls/hr 06/19/24 15:45 06/19/24 16:16 Saline 0.9% IV 75 mls/hr .[id number] ENRIQUE Administration Naloxone HCl 0.2 mg 06/19/24 15:31 Naloxone 0.4 Mg/Ml 1 Ml Vial IV Q2M PRN Opioid Reversal Intake and Output 06/19/24 06/20/24 06/20/24 22:59 06:59 14:59 Other: # Voids 1 1 Weight 79.832 kg 06/19/24 12:23 06/19/24 12:23
[2024-06-20] MEDS: MIDAZOLAM 2 MG/2 ML VIAL IVP ONE (10:42)
[2024-06-20] MEDS: fentaNYL (PF) 50 MCG/1 ML VIAL IVP ONE (10:42)
[2024-06-20] MEDS: LIDOCAINE 1% INJ 10MG/ML (20 ML MDV) SQ ONE (10:43)
[2024-06-20] MEDS: VERAPAMIL SYRINGE (5 MG/10 ML) INTRAARTER ONE (10:45)
[2024-06-20] MEDS: HEPARIN SODIUM 1,000 UN/ML (10ML VL) IV ONE (10:47)
[2024-06-20] MEDS: IOPAMIDOL-370 100ML BTL INJ ONE (11:02)
--- NOTE | 2024-06-20 12:29 | P.CNNES ---
History of Present Illness Consult date: 06/20/24 Requesting physician: Tiffany Hernandez Reason for Consult: ataxia History of Present Illness: This is a 59-year-old woman with history of SVT, thyroid issue who presents emergency department because of generalized weakness, fatigue, nausea off balance since this past Sunday. Patient just feels generalized weakness and the re is no focal weakness as well as fatigue/tired. She does not have any visual disturbance, any speech difficulty. Denies any recent fevers. She feels she has tingling in the fingers and the feet. Denies any recent sick contacts. Denies any difficulty swallowing. Denies any recent travel. Denies any history of stroke. Denies passing out episode. She feels today she is better. She stated she drinks 2 large drinks of alcohol daily and her last drink was this past not since Sunday Some of the workup during this hospital consisted of: CBC with differential is unremarkable Chemistry panel is unremarkable Hemoglobin A1c 6.2 Vitamin B12 is 490 TSH is 1.80 Serum folate is 32.90 Otherwise sodium, calcium magnesium is within normal limit CT head: No significant abnormality seen. There is no acute bleed or mass effect. I personally reviewed the CT and agree with the report. EKG is reported as moderate intraventricular conduction delay. Moderate T wave abnormality consider anterior lateral ischemia. Consider inferior ischemia. Review of Systems As per HPI. Past Medical History Past Medical History: Hypertension, Supraventricular Tachycardia (SVT), Thyroid Disorder Additional Past Medical History / Comment(s): tendinitis, right carpal tunnel, Barretts esophagus, Sjogrens, SVT, emphysema, right plantar fasciitis, hemorrhoids, diverticulitis, kidney stones History of Any Multi-Drug Resistant Organisms: None Reported Past Surgical History: Orthopedic Surgery, Tubal Ligation Additional Past Surgical History / Comment(s): cervical leep, D&C, internal lateral sphincter irony, septoplasty and uvula vidal. Past Psychological History: Bipolar, Depression Smoking Status: Never smoker Past Alcohol Use History: Daily Past Drug Use History: None Reported - Past Family History Mother Family Medical History: Coronary Artery Disease (CAD), Diabetes Mellitus, Hypertension Additional Family Medical History / Comment(s): pacemaker, breast ca Medications and Allergies Home Medications Medication Instructions Recorded Confirmed Type Albuterol Sulfate [Ventolin HFA] 2 puff INHALATION RT-QID PRN 05/21/24 06/19/24 History Bifidobacterium Infantis [Align] 4 mg PO DAILY 05/21/24 06/19/24 History Chlorthalidone 25 mg PO DAILY 05/21/24 06/19/24 History Fish Oil 700mg 700 mg PO DAILY 05/21/24 06/19/24 History Fluticasone Nasal [place] [Flonase 2 spr EA NOSTRIL DAILY 05/21/24 06/19/24 History Nasal [place]] Gabapentin [Neurontin] 400 mg PO HS 05/21/24 06/19/24 History Levothyroxine Sodium [Synthroid] 88 mcg PO DAILY 05/21/24 06/19/24 History Metoprolol Succinate [Toprol XL] 100 mg PO DAILY 05/21/24 06/19/24 History Multivit with Calcium,Iron,Min 1 tab PO DAILY 05/21/24 06/19/24 History [Women's Multivitamin] OXcarbazepine [Trileptal] 150 mg PO BID 05/21/24 06/19/24 History Omeprazole 40 mg PO DAILY 05/21/24 06/19/24 History QUEtiapine [SEROquel] 100 mg PO HS 05/21/24 06/19/24 History Tiotropium 2.5 Mcg/Puff [Spiriva 2 puff INHALATION RT-DAILY 05/21/24 06/19/24 History Respimat 2.5 Mcg] Venlafaxine HCl [Effexor XR] 150 mg PO DAILY 05/21/24 06/19/24 History Allergies Allergy/AdvReac Type Severity Reaction Status Date / Time amoxicillin [From Augmentin] Allergy Rash/Hives Verified 06/19/24 11:48 clavulanic acid Allergy Rash/Hives Verified 06/19/24 11:48 [From Augmentin] Physical Examination - Vital Signs Vital Signs: Vital Signs Temp Pulse Pulse Resp BP BP BP 06/20/24 07:00 97.7 F 75 16 06/20/24 01:16 97.4 F L 57 L 18 06/19/24 20:00 66 16 06/19/24 19:14 97.6 F 66 16 06/19/24 17:42 98.3 F 66 16 06/19/24 17:21 97.7 F 66 18 109/69 06/19/24 15:52 71 18 127/91 06/19/24 14:30 64 16 129/79 06/19/24 13:46 84 18 136/105 06/19/24 13:45 57 L 16 125/85 06/19/24 13:43 57 L 18 06/19/24 12:57 59 L 18 103/70 BP Pulse Ox 06/20/24 07:00 149/94 99 06/20/24 01:16 121/81 95 06/19/24 20:00 06/19/24 19:14 119/77 95 06/19/24 17:42 127/83 95 06/19/24 17:21 95 06/19/24 15:52 100 06/19/24 14:30 100 06/19/24 13:46 98 06/19/24 13:45 98 06/19/24 13:43 119/75 95 06/19/24 12:57 95 Intake and Output 06/19/24 06/20/24 06/20/24 22:59 06:59 14:59 Intake Total 130 Balance 130 Intake: IV 130 Other: # Voids 1 1 Weight 79.832 kg GENERAL: The patient is lying in bed and is not in acute distress. NEUROLOGICAL: Higher mental function: The patient is awake, alert, oriented to self, place and time. Patient is following commands. No aphasia and no neglect. Cranial nerves: The pupils are round, equal and reactive to light and accommodation. Visual kaufman are full to confrontation throughout. Extraocular movement is intact no nystagmus is noted. Facial sensation is normal to touch throughout. The facial strength is normal throughout. Hearing is normal bilaterally to hand rub. Tongue is midline and moved [id number] without any difficulty. No dysarthria is noted. Shoulder shrug is normal bilaterally. Motor: The strength is 5 over 5 throughout. Normal tone and bulk. Cerebellum: Normal finger to nose heel to nunez bilaterally. Sensation: Sensation is normal to touch throughout. Reflexes (right/left): 2+ throughout. Plantars are downgoing bilaterally. Results - Laboratory Findings CBC and BMP: 06/20/24 05:38 06/20/24 05:38 Abnormal Lab Findings: Abnormal Labs 06/19/24 06/20/24 06/20/24 12:23 05:38 05:38 Chloride 97 L BUN 19 H Glucose 107 H 119 H Hemoglobin A1c 6.2 H Folate 06/20/24 05:38 Chloride BUN Glucose Hemoglobin A1c Folate 32.90 H Assessment and Plan Assessment: This is a 59-year-old woman who presents the emergency department because of generalized weakness, fatigue, nausea and feels has numbness over the feet and fingers as well as off balance since this past Sunday. Today she feels better. Generalized weakness with fatigue and some numbness in the fingers and feet: Unsure exact etiology. CT of the head is unremarkable. Today the patient feels better compared to initial presentation. History of SVT History of thyroid issues Alcohol use Plan: I ordered MRI of the brain with and without I started the patient on thiamine 100 mg daily I consulted PT and OT for gait assessment 2D echo was ordered and is pending Cardiology is consulted Will defer the rest of the medical management to primary other specialist Thank you for the consultation Dr. Dill will resume neurology service tomorrow AM Time with Patient: Greater than 30
--- NOTE | 2024-06-20 13:09 | CA ---
Transthoracic Echo Report Name: Jana Herring Age: 59 Gender: F : 1965 Exam Date: 06/20/2024 11:36 Exam Location: [place] [facility] Ht (in): 61 Wt (lb): 176 Ordering Physician: Tiffany Hernandez DO Attending/Referring Phys: [id number], David Product Info Specialist Yesi Valdes, [facility] Procedure CPT: Indications: abnormal ekg Cardiac Hx: Technical Quality: Good Contrast 1: Total Dose (mL): Contrast 2: Total Dose (mL): MEASUREMENTS (Male / Female) Normal Values 2D ECHO LV Diastolic Diameter PLAX 4.3 cm 4.2 - 5.9 / 3.9 - 5.3 cm LV Systolic Diameter PLAX 2.9 cm IVS Diastolic Thickness 1.1 cm 0.6 - 1.0 / 0.6 - 0.9 cm LVPW Diastolic Thickness 1.2 cm 0.6 - 1.0 / 0.6 - 0.9 cm LV Relative Wall Thickness 0.5 RV Internal Dim ED PLAX 3.2 cm LA Systolic Diameter LX 3.4 cm 3.0 - 4.0 / 2.7 - 3.8 cm LV Diastolic Volume MOD 4C 84.2 cm??? LV Systolic Volume MOD 4C 43.0 cm??? LV Ejection Fraction MOD 4C 48.9 % LV Cardiac Index MOD 4C 1133.8 cm???/min???m??? LV Diastolic Length 4C 7.5 cm LV Systolic Length 4C 5.9 cm LV Diastolic Volume MOD 2C 85.1 cm??? LV Systolic Volume MOD 2C 34.1 cm??? LV Ejection Fraction MOD 2C 59.9 % LV Cardiac Index MOD 2C 1403.1 cm???/min???m??? LV Diastolic Length 2C 7.8 cm LV Systolic Length 2C 6.2 cm LA Volume 37.8 cm??? 18 - 58 / 22 - 52 cm??? LA Volume Index 20.0 cm???/m??? 16 - 28 cm???/m??? M-MODE Aortic Root Diameter MM 3.1 cm DOPPLER AV Peak Velocity 151.7 cm/s AV Peak Gradient 9.2 mmHg MV Area PHT 3.6 cm??? Mitral E Point Velocity 80.4 cm/s Mitral A Point Velocity 82.6 cm/s Mitral E to A Ratio 1.0 MV Deceleration Time 212.5 ms TR Peak Velocity 241.1 cm/s TR Peak Gradient 23.3 mmHg Right Ventricular Systolic Press 27.8 mmHg FINDINGS Left Ventricle Left ventricular ejection fraction is estimated at 55-60 %. Left ventricular cavity size normal. Mildly increased septal wall thickness. Mildly increased posterior wall thickness. Normal left ventricular wall motion. Right Ventricle Normal right ventricular size. Right ventricular systolic pressure within normal limits. Right Atrium Normal right atrial size. No right atrial thrombus or mass seen. Negative agitated saline bubble study for right to left shunt. Left Atrium Normal left atrial size. No left atrial thrombus or mass present. Mitral Valve Structurally normal mitral valve. No mitral stenosis, regurgitation or prolapse. Aortic Valve Trileaflet aortic valve. Diffuse thickening (sclerosis) of the aortic valve cusps without reduced excursion. Tricuspid Valve Structurally normal tricuspid valve. Mild tricuspid regurgitation. Pulmonic Valve Structurally normal pulmonic valve. Trace pulmonic regurgitation. Pericardium No pericardial effusion. Aorta Normal size aortic root and proximal ascending aorta. CONCLUSIONS Normal LV function Previewed by: Dr. Iain Shaver MD (Electronically Signed) Final Date: 20 June 2024 13:09
[2024-06-20] MEDS ORDERED: RX INFO: IV CONTRAST WAS GIVEN 1 EACH MISC MISCELLANE PRN (13:18)
--- NOTE | 2024-06-20 13:22 | P.HPIM ---
History of Present Illness This is a pleasant 59 years old female who was sent from her PCP office Dr. Pena because of EKG changes Patient states that she went to see her PCP because she was feeling severely weak and severely exhausted and fatigued since last Sunday this was associated with some dizziness and numbness in her both hands and feet again both since last Sunday. She denies chest pain dyspnea coughing No GI/ symptoms. No falling. She denies smoking or illicit drugs. She drinks alcohol daily but she quit black Sunday when she started having symptoms. She is hemodynamically stable afebrile CBC, BMP, LFT unremarkable. Troponin x 3 negative INR is negative. Urinalysis negative. COVID and influenza test negative D-dimer is negative at 0.22. EKG showing sinus rhythm at 60 with T wave inversion in the inferior lateral leads CT of the brain is negative for acute process chest x-ray is negative for acute process. 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 HEENT: No recent visual problems or hearing problems. Denied any sore throat. CARDIOVASCULAR: No orthopnea, PND, no palpitations, no syncope. PULMONARY: No shortness of breath, no cough, no hemoptysis. GASTROINTESTINAL: No diarrhea, no nausea, no vomiting, no abdominal pain. Normoactive bowel sounds. NEUROLOGICAL: No headaches, no weakness, no numbness. HEMATOLOGICAL: Denies any bleeding or petechiae. GENITOURINARY: Denies any burning micturition, frequency, or urgency. MUSCULOSKELETAL/RHEUMATOLOGICAL: Denies any joint pain, swelling, or any muscle pain. ENDOCRINE: Denies any polyuria or polydipsia. Past Medical History Past Medical History: Hypertension, Supraventricular Tachycardia (SVT), Thyroid Disorder Additional Past Medical History / Comment(s): tendinitis, right carpal tunnel, Barretts esophagus, Sjogrens, SVT, emphysema, right plantar fasciitis, hemorrhoids, diverticulitis, kidney stones History of Any Multi-Drug Resistant Organisms: None Reported Past Surgical History: Orthopedic Surgery, Tubal Ligation Additional Past Surgical History / Comment(s): cervical leep, D&C, internal lateral sphincter irony, septoplasty and uvula vidal. Past Psychological History: Bipolar, Depression Smoking Status: Never smoker Past Alcohol Use History: Daily Past Drug Use History: None Reported - Past Family History Mother Family Medical History: Coronary Artery Disease (CAD), Diabetes Mellitus, Hypertension Additional Family Medical History / Comment(s): pacemaker, breast ca Medications and Allergies Home Medications Medication Instructions Recorded Confirmed Type Albuterol Sulfate [Ventolin HFA] 2 puff INHALATION RT-QID PRN 05/21/24 06/19/24 History Bifidobacterium Infantis [Align] 4 mg PO DAILY 05/21/24 06/19/24 History Chlorthalidone 25 mg PO DAILY 05/21/24 06/19/24 History Fish Oil 700mg 700 mg PO DAILY 05/21/24 06/19/24 History Fluticasone Nasal [place] [Flonase 2 spr EA NOSTRIL DAILY 05/21/24 06/19/24 History Nasal [place]] Gabapentin [Neurontin] 400 mg PO HS 05/21/24 06/19/24 History Levothyroxine Sodium [Synthroid] 88 mcg PO DAILY 05/21/24 06/19/24 History Metoprolol Succinate [Toprol XL] 100 mg PO DAILY 05/21/24 06/19/24 History Multivit with Calcium,Iron,Min 1 tab PO DAILY 05/21/24 06/19/24 History [Women's Multivitamin] OXcarbazepine [Trileptal] 150 mg PO BID 05/21/24 06/19/24 History Omeprazole 40 mg PO DAILY 05/21/24 06/19/24 History QUEtiapine [SEROquel] 100 mg PO HS 05/21/24 06/19/24 History Tiotropium 2.5 Mcg/Puff [Spiriva 2 puff INHALATION RT-DAILY 05/21/24 06/19/24 History Respimat 2.5 Mcg] Venlafaxine HCl [Effexor XR] 150 mg PO DAILY 05/21/24 06/19/24 History Allergies Allergy/AdvReac Type Severity Reaction Status Date / Time amoxicillin [From Augmentin] Allergy Rash/Hives Verified 06/19/24 11:48 clavulanic acid Allergy Rash/Hives Verified 06/19/24 11:48 [From Augmentin] Physical Exam Vitals: Vital Signs Temp Pulse Pulse Resp BP BP BP 06/20/24 07:00 97.7 F 75 16 06/20/24 01:16 97.4 F L 57 L 18 06/19/24 20:00 66 16 06/19/24 19:14 97.6 F 66 16 06/19/24 17:42 98.3 F 66 16 06/19/24 17:21 97.7 F 66 18 109/69 06/19/24 15:52 71 18 127/91 06/19/24 14:30 64 16 129/79 06/19/24 13:46 84 18 136/105 06/19/24 13:45 57 L 16 125/85 06/19/24 13:43 57 L 18 BP Pulse Ox 06/20/24 07:00 149/94 99 06/20/24 01:16 121/81 95 06/19/24 20:00 06/19/24 19:14 119/77 95 06/19/24 17:42 127/83 95 06/19/24 17:21 95 06/19/24 15:52 100 06/19/24 14:30 100 06/19/24 13:46 98 06/19/24 13:45 98 06/19/24 13:43 119/75 95 Intake and Output 06/19/24 06/20/24 06/20/24 22:59 06:59 14:59 Intake Total 130 Balance 130 Intake: IV 130 Other: # Voids 1 1 Weight 79.832 kg GENERAL: The patient is alert and oriented x3, not in any acute distress. Well developed, well nourished. HEENT: Pupils are round and equally reacting to light. EOMI. No scleral icterus. No conjunctival pallor. Normocephalic, atraumatic. No pharyngeal erythema. No thyromegaly. CARDIOVASCULAR: S1 and S2 present. No murmurs, rubs, or gallops. PULMONARY: Chest is clear to auscultation, no wheezing , no crackles. ABDOMEN: Soft, nontender, nondistended, normoactive bowel sounds. No palpable organomegaly. MUSCULOSKELETAL: No joint swelling or deformity. EXTREMITIES: No cyanosis, clubbing, or pedal edema. NEUROLOGICAL: Gross neurological examination did not reveal any focal deficits. SKIN: No rashes. no petechiae. Results CBC & Chem 7: 06/20/24 05:38 06/20/24 05:38 Labs: Abnormal Lab Results - Last 24 Hours (Table) 06/19/24 06/20/24 06/20/24 Range/Units 12:23 05:38 05:38 Chloride 97 L (98-107) mmol/L BUN 19 H (7-17) mg/dL Glucose 107 H 119 H (74-99) mg/dL Hemoglobin A1c 6.2 H (<=6.0) % Folate (4.40-31.00) ng/mL 06/20/24 Range/Units 05:38 Chloride (98-107) mmol/L BUN (7-17) mg/dL Glucose (74-99) mg/dL Hemoglobin A1c (<=6.0) % Folate 32.90 H (4.40-31.00) ng/mL Thrombosis Risk Factor Assmnt - Choose All That Apply Any of the Below Risk Factors Present?: Yes Each Factor Represents 1 point: Heart failure (<1month), Obesity (BMI >25) Other Risk Factors: Yes Each Risk Factor Represents 3 Points: Family history of DVT/PE Other congenital or acquired thrombophilia - If yes, enter type in comment: No Thrombosis Risk Factor Assessment Total Risk Factor Score: 5 Thrombosis Risk Factor Assessment Level: High Risk Assessment and Plan Assessment: Generalized weakness and fatigue She has some EKG changes with normal cardiac cath Ataxia with numbness in all extremities and fatigue, no specific lateralization. Rule out stroke versus other Hypertension History of SVT Hypothyroidism Emphysema Alcohol use disorder Bipolar and depression, not an active issue Plan: Cardiac cath was unremarkable per primary part, follow-up for report MRI of the brain is pending Cardiology and neurology consult Decrease the dose of Seroquel to 50. Lower dose of gabapentin if patient agrees Labs and medication were reviewed.. Continue same treatment. Continue with sym ptomatic treatment. Resume home medication. Monitor labs and vitals. DVT and GI prophylaxis. Further recommendations as per clinical course of the patient DVT prophylaxis: Subcutaneous heparin GI Prophylaxis: Pepcid PT/OT: As per staff patient walking with no difficult Prognosis is guarded
[2024-06-20] MEDS: THIAMINE 100 MG TAB PO SCH (14:45)
[2024-06-20] MEDS: SODIUM CHLORIDE 0.9% 1,000 ML IV SCH (19:56)
[2024-06-20] MEDS: QUEtiapine 50 MG TAB PO SCH (20:53)
[2024-06-20] MEDS: OXcarbazepine 150 MG TAB PO SCH (20:53)
[2024-06-20] MEDS: GABAPENTIN 100 MG CAP PO SCH (20:53)
[2024-06-21] MEDS: PANTOPRAZOLE 40 MG TABLET PO SCH (06:20)
[2024-06-21] MEDS: LEVOTHYROXINE 88 MCG TAB PO SCH (06:20)
[2024-06-21 07:25] VITALS: BP 115/66; PULSE 62; RESP 17; TEMP 97.5
[2024-06-21] MEDS: VENLAFAXINE HCL ER 150 MG CAP PO SCH (09:07)
--- NOTE | 2024-06-21 10:52 | MR ---
EXAMINATION TYPE: MR brain wo/w con DATE OF EXAM: 06/21/2024 10:42 AM COMPARISON: None. CLINICAL INDICATION: Female, 59 years old with history of off balance, Off Balance IV Contrast: 8 cc Gadobutrol (None if empty) TECHNIQUE: Multiplanar, multisequence images of the brain and brainstem is performed without and with IV contras t, utilizing 8 mL intravenous Gadobutrol . MRI brain without contrast. CLINICAL INDICATION: Female, 59 years old with history of off balance, Persistent headaches. COMPARISON: None. TECHNIQUE: Multiecho multiplanar images the brain were obtained without contrast. FINDINGS: On the T1-weighted sagittal images, the midline structures including the craniovertebral junction rel ationships are normal. The ventricles, basal cisterns and sulci over the convexities are within normal limits and there is n o mass effect or shift of the midline structures. There are a few tiny scattered areas of abnormal increased signal intensity on the T2-weighted and FL AIR images are nonspecific but most likely represent mild chronic ischemic white matter change. The s usceptibility weighted images are normal and there is no evidence of hemorrhage. Based on the diffusion-weighted images, there is no diffusion restriction or acute ischemic event. Following contrast administration, there is no pathological enhancement. The posterior fossa including the brainstem, fourth ventricle and cerebellar pontine angles appear no rmal. The intraorbital contents appear normal and symmetric. Visualized paranasal sinuses and mastoid air c ells are well aerated. IMPRESSION: Minimal chronic ischemic white matter change with no other significant abnormality. [facility], Workstation: [id number] 06/21/2024 10:50 AM
--- NOTE | 2024-06-21 20:22 | P.DS ---
Providers Date of admission: 06/19/24 15:32 Attending physician: David Ornelas MD Consults: 06/19/24 15:31 Consult Physician Urgent Consulting Provider: Felix Rodriguez Consult Reason/Comments: ataxia Do you want consulting provider notified?: Yes Consult Physician Urgent Consulting Provider: [facility] Consult Reason/Comments: abnormal ekg Do you want consulting provider notified?: Yes Primary care physician: Sergio Pena Hospital Course: Diagnoses: Generalized weakness and fatigue, secondary to medication improved significantly on lower the dose of Seroquel and gabapentin She has some EKG changes with normal cardiac cath Ataxia with numbness in all extremities and fatigue, no specific lateralization. Ru stroke was ruled out with unremarkable MRI of the brain requested by neuro logist Hypertension History of SVT Hypothyroidism Emphysema Alcohol use disorder Bipolar and depression, not an active issue Hospital course: This is a pleasant 59 years old female who was sent from her PCP office Dr. 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 Neurologist also evaluated her who recommended MRI of the brain which was done today Showing minimal chronic ischemic white matter changes with no other significant abnormality. Patient was taking Seroquel 100 mg at night to help her sleep and gabapentin 400 mg once daily for her neuropathy, we will cut this dose in half to Seroquel 50 mg and gabapentin 200 mg, and today patient back to baseline fully awake and oriented and energetic, denies any chest pain or dyspnea or any other complaints. Patient agrees with this plan although she says that she has little bit more neuropathic pain but she will try the 200 mg and if she will needed to increase it again she will talk to her doctor to adjust other medication. But she agrees to lower the dose of Seroquel to 50 mg up with sleep hygiene. Patient was asked to resume the rest of her home medication and she agrees. She told me she does not need any other more prescription Patient denies any other new complaint. Patient wants to go home today. Patient was cleared for discharge by both neurology and cardiology services. This was confirmed also with the bedside nurse yesterday and today. Problems and management plan were discussed with the patient and he verbalized understanding and acceptance Patient was found stable and can be discharged home in guarded prognosis however he needs follow-up as an outpatient. Patient was instructed to follow up with PCP within one week and patient agrees Physical exam Gen: patient is a AAOx3, no distress CVS: S1-S2, RRR, no murmur Lungs: B/L CTA, no wheezing Abdomen: soft, no distention, no tenderness, positive bowel sounds Extremity: no leg edema or induration Time spent more than 35 minutes Patient Condition at Discharge: Stable Plan - Discharge Summary Discharge Rx Participant: No New Discharge Prescriptions: New RX: Thiamine [Vitamin B-1] 100 mg PO DAILY 21 Days #21 tab RX: Gabapentin [Neurontin] 200 mg PO HS #30 cap RX: QUEtiapine [SEROquel] 50 mg PO HS #30 tab Discontinued Gabapentin [Neurontin] 400 mg PO HS QUEtiapine [SEROquel] 100 mg PO HS No Action Fish Oil 700mg 700 mg PO DAILY RX: Bifidobacterium Infantis [Align] 4 mg PO DAILY RX: Chlorthalidone 25 mg PO DAILY RX: Fluticasone Nasal [place] [Flonase Nasal [place]] 2 spr EA NOSTRIL DAILY RX: Levothyroxine Sodium [Synthroid] 88 mcg PO DAILY RX: Metoprolol Succinate [Toprol XL] 100 mg PO DAILY RX: Tiotropium 2.5 Mcg/Puff [Spiriva Respimat 2.5 Mcg] 2 puff INHALATION RT- DAILY RX: Venlafaxine HCl [Effexor XR] 150 mg PO DAILY RX: Albuterol Sulfate [Ventolin HFA] 2 puff INHALATION RT-QID PRN PRN Reason: Shortness Of Breath RX: Multivit with Calcium,Iron,Min [Women's Multivitamin] 1 tab PO DAILY RX: Omeprazole 40 mg PO DAILY RX: OXcarbazepine [Trileptal] 150 mg PO BID Discharge Medication List Fish Oil 700mg 700 mg PO DAILY 05/21/24 [History] RX: Albuterol Sulfate [Ventolin HFA] 2 puff INHALATION RT-QID PRN 05/21/24 [History] RX: Bifidobacterium Infantis [Align] 4 mg PO DAILY 05/21/24 [History] RX: Chlorthalidone 25 mg PO DAILY 05/21/24 [History] RX: Fluticasone Nasal [place] [Flonase Nasal [place]] 2 spr EA NOSTRIL DAILY 05/21/24 [History] RX: Levothyroxine Sodium [Synthroid] 88 mcg PO DAILY 05/21/24 [History] RX: Metoprolol Succinate [Toprol XL] 100 mg PO DAILY 05/21/24 [History] RX: Multivit with Calcium,Iron,Min [Women's Multivitamin] 1 tab PO DAILY 05/21/24 [History] RX: OXcarbazepine [Trileptal] 150 mg PO BID 05/21/24 [History] RX: Omeprazole 40 mg PO DAILY 05/21/24 [History] RX: Tiotropium 2.5 Mcg/Puff [Spiriva Respimat 2.5 Mcg] 2 puff INHALATION RT- DAILY 05/21/24 [History] RX: Venlafaxine HCl [Effexor XR] 150 mg PO DAILY 05/21/24 [History] RX: Gabapentin [Neurontin] 200 mg PO HS #30 cap 06/21/24 [Rx] RX: QUEtiapine [SEROquel] 50 mg PO HS #30 tab 06/21/24 [Rx] RX: Thiamine [Vitamin B-1] 100 mg PO DAILY 21 Days #21 tab 06/21/24 [Rx] Follow up Appointment(s)/Referral(s): Sergio Pena MD [Primary Care Provider] - 1-2 days Jose Luis Randle MD [Medical Doctor] - 1 Week Elian Orozco MD [Medical Doctor] - 2 Weeks Activity/Diet/Wound Care/Special Instructions: Heart healthy diet Activity is restricted till you see your doctor Would like you to lower your Seroquel dose to 50 mg at midnight or even lower if possible, instead you can use sleep hygiene Discharge Disposition: HOME SELF-CARE
--- NOTE | 2024-06-23 14:20 | CC ---
CARDIAC CATHETERIZATION REPORT INDICATION: Abnormal stress test. PROCEDURE NOTE: After obtaining informed consent, left heart catheterization and coronary angiogram were performed via the right radial artery using standard Cheri catheters. The patient tolerated the procedure well without any obvious immediate complications. The patient received moderate conscious sedation. Total sedation time was 12 minutes. Right radial artery access was obtained using Seldinger technique, 6-Italian sheath was placed. Catheters and wires were floated into the ascending aorta under fluoroscopic guidance. The patient received verapamil and heparin per protocol and a TR band will be used for hemostasis. FINDINGS: 1. HEMODYNAMICS: Left ventricular end-diastolic pressure is 4 to 6 mm. There is no significant gradient across the aortic valve. 2. LEFT VENTRICULOGRAM: Left ventriculogram is not performed. 3. ANGIOGRAPHIC DATA: a.Right coronary artery: Right coronary artery is a large dominant vessel and is free of significant stenosis. b.Left main coronary artery is a normal-sized vessel and is free of disease, divides into left anterior descending coronary artery and circumflex coronary artery. LAD and its branches, circumflex coronary artery and its branches are free of significant stenosis. CONCLUSIONS: 1. Normal coronary arteries. 2. False-positive stress test. The patient's management is going to be in the form of risk factor modification and optimal medical therapy. MMODL / IJN: [id number] /
== END 2024-06-21 12:54 | disposition home or self-care (01) ==
LOC: EC 11:37 → 6NMEDSUR 15:32
PROVIDERS: ADMIT Internal Medicine; ATTEND Internal Medicine
DX: R53.1 Weakness (principal); R07.9 Chest pain, unspecified; R27.0 Ataxia, unspecified; R20.0 Anesthesia of skin; R94.31 Abnormal electrocardiogram [ECG] [EKG]; I47.10 Supraventricular tachycardia, unspecified; E66.9 Obesity, unspecified; E03.9 Hypothyroidism, unspecified; F32.A Depression, unspecified; G62.9 Polyneuropathy, unspecified; I10 Essential (primary) hypertension; J43.9 Emphysema, unspecified; M35.00 Sjogren syndrome, unspecified; Z79.890 Hormone replacement therapy; Z79.899 Other long term (current) drug therapy; Z68.33 Body mass index [BMI] 33.0-33.9, adult; Z88.0 Allergy status to penicillin; Z88.1 Allergy status to other antibiotic agents
CPT/HCPCS: 96360; 96361; 99285; 36415; 93005; 93306; 97161; 97165; 93458; 85379; 80053; 80048; 84443; 82533; 82607; 82746; 83735; 84484; 85025 ×2; 85610; 85730; 81003; 82306; 83036; 87636; 71046; 70450; 70553; G0378 ×3; C1894; J2250; J1644 ×3; J2003; Q9967; A9585; J3010

== ENCOUNTER → 2024-08-06 | Outpatient (CLI) | payer OTHER ==
--- NOTE | 2024-08-06 11:42 | MM ---
Reason for Exam: Screening (asymptomatic). Last screening mammogram was performed 12 month(s) ago. Patient History: Menarche at age 13. Patient has no children. Postmenopausal. 08/07/2001, Benign Excisional Biopsy on the right side. Mother had breast cancer, age 62. Risk Values: Prema 5 year model risk: 3.1%. NCI Lifetime model risk: 17.0%. Prior Study Comparison: 06/21/2020 Bilateral Screening Mammogram, Unknown. 06/24/2021 Bilateral Screening Mammogram, Unknown. 08/06/2023 Bilateral MG 3D screening mammo w/cad, [facility]. Tissue Density: The breasts are heterogeneously dense, which may obscure small masses. Findings: Analyzed By CAD. Benign-appearing round calcifications bilaterally are redemonstrated. Benign-appearing bilateral axillary lymph nodes are again seen. There is no suspicious group of microcalcifications or new suspicious mass in either breast. Overall Assessment: Benign, BI-RAD 2 Management: Screening Mammogram of both breasts in 1 year. Some advise annual bilateral breast ultrasound surveillance in patients with background dense tissue. Patient should continue monthly self-breast exams. A clinical breast exam by your physician is recommended on an annual basis. This exam should not preclude additional follow-up of suspicious palpable abnormalities. Note on Prema scores and lifetime risk: 1. A Prema score greater than 3% is considered moderate risk. If this is the case, consider specialist referral to assess eligibility for a risk reducing agent. 2. If overall lifetime risk for the development of breast cancer is 20% or higher, the patient may qualify for future screening with alternating mammogram and breast MRI. [facility], , 08/06/2024 11:39 AM. Electronically signed and approved by: Aaron Mondragon M.D.
== END | disposition home or self-care (01) ==
LOC: RADMAMWWP 11:00
PROVIDERS: ATTEND Family Medicine
DX: Z12.31 Encounter for screening mammogram for malignant neoplasm of breast (principal); R92.333 Mammographic heterogeneous density, bilateral breasts; R92.1 Mammographic calcification found on diagnostic imaging of breast; Z78.0 Asymptomatic menopausal state; Z80.3 Family history of malignant neoplasm of breast
CPT/HCPCS: 77063; 77067

== ENCOUNTER 2024-09-19 13:06 | Day surgery (SDC) | payer OTHER ==
[2024-09-18 12:44] VITALS: BMI 34.0
[2024-09-19] MEDS: IV FLUID CONTINUATION 1,000 ML IV ONE (14:34)
[2024-09-19 14:37] VITALS: RESP 16; TEMP 97.2
[2024-09-19] MEDS: LACTATED RINGERS 1,000 ML IV SCH (14:50)
[2024-09-19] MEDS ORDERED: PROPOFOL 10 MG/ML 20 ML VIAL IV ONE (15:38)
--- NOTE | 2024-09-19 15:53 | P.PCN ---
Date of Procedure: 09/19/24 Procedure(s) Performed: BRIEF HISTORY: Patient is a 59-year-old pleasant white female scheduled for an elective colonoscopy as a part of evaluation of recent episode of acute sigmoid a diverticulitis in April 2024 requiring antibiotics. She is doing well now. Her last colonoscopy was 10 years ago. PROCEDURE PERFORMED: Colonoscopy. PREOPERATIVE DIAGNOSIS: Recent episode of acute sigmoid diverticulitis. IV sedation per Anesthesia. PROCEDURE: After informed consent was obtained, the patient, was brought into the endoscopy unit. IV sedation was administered by Anesthesia under continuous monitoring. Digital rectal examination was normal. Initially the Olympus CF-160 flexible video colonoscope was then inserted in the rectum, gradually advanced into the cecum without any difficulty. Careful examination was performed as the scope was gradually being withdrawn. Ileocecal valve and the appendiceal orifice were visualized and appeared normal. Prep was excellent. Mucosa of the cecum, ascending colon, transverse colon, descending colon, sigmoid colon, and rectum appeared normal. Scattered small diverticulosis. Retroflexion was performed in the rectum and no lesions were seen. The patient tolerated the procedure well. IMPRESSION: Normal-appearing colon from rectum to cecum with no evidence of colorectal neoplasia Moderate sigmoid diverticulosis. RECOMMENDATIONS: Findings of this examination were discussed with the patient. She was advised to be on a high-fiber diet and take fiber supplements on regular basis. Recommend repeat screening colonoscopy in 10 years..
[2024-09-19 16:11] VITALS: BP 113/72; PULSE 57
== END 2024-09-19 16:39 | disposition home or self-care (01) ==
LOC: ORWHC2ENDO 13:06
PROVIDERS: ATTEND Internal Medicine Gastroenterology
DX: K57.30 Diverticulosis of large intestine without perforation or abscess without bleeding (principal); I10 Essential (primary) hypertension; I47.10 Supraventricular tachycardia, unspecified; E78.5 Hyperlipidemia, unspecified; I25.2 Old myocardial infarction; G47.33 Obstructive sleep apnea (adult) (pediatric); J44.9 Chronic obstructive pulmonary disease, unspecified; E07.9 Disorder of thyroid, unspecified; M35.00 Sjogren syndrome, unspecified; F31.9 Bipolar disorder, unspecified; K21.9 Gastro-esophageal reflux disease without esophagitis; Z79.890 Hormone replacement therapy; Z79.899 Other long term (current) drug therapy; Z87.891 Personal history of nicotine dependence; Z87.19 Personal history of other diseases of the digestive system; Z88.1 Allergy status to other antibiotic agents
CPT/HCPCS: 45378; J2704